=== PATIENT | female | born 1990 | race American Indian/Alaskan Native ===

== ENCOUNTER 2020-06-26 18:31 | Outpatient (CLI) | payer OTHER ==
[2020-06-26 19:39] VITALS: BP 110/69
--- NOTE | 2020-06-26 21:58 | Ultrasound Report ---
ULTRASOUND OBSTETRIC LIMITED ULTRASOUND BIOPHYSICAL PROFILE INDICATION / CLINICAL INFORMATION: MICHAEL. Clinical Gestational Age (GA): 38.3 weeks.days COMPARISON: None available. FINDINGS: BREATHING MOVEMENT = 2 GROSS BODY MOVEMENT = 2 TONE = 2 QUALITATIVE AMNIOTIC FLUID VOLUME = 2 TOTAL BIOPHYSICAL SCORE = 8/8 HEART RATE (beats per minute): 129 AMNIOTIC FLUID INDEX (cm) = 13.0 (normal = 7-24 cm) PRESENTATION: Cephalic. ADDITIONAL FINDINGS: None. IMPRESSION: 1. Biophysical Score = 8/8 2. MICHAEL is within normal limits at 13.0 cm. Signer Name: Armani Almanza MD Signed: 06/26/2020 9:53 PM Workstation Name: [id number]
== END 2020-06-26 21:20 | disposition home or self-care (01) ==
LOC: TRG 18:31 → APU 18:32 → TRG 21:20
PROVIDERS: ATTEND Obstetrics & Gynecology
DX: Z34.93 Encounter for supervision of normal pregnancy, unspecified, third trimester (principal); Z3A.38 38 weeks gestation of pregnancy
CPT/HCPCS: 59025; 76815; 76819

== ENCOUNTER 2020-06-28 03:52 | Inpatient (IN) | payer OTHER ==
[2020-06-28] MEDS ORDERED: LIDOCAINE (2%) 20 MG/1 ML VIAL 20 ML MDV INFILTRATI ONE (04:45)
[2020-06-28] MEDS ORDERED: ePHEDrine SULFATE 50 MG/1 ML INJ IV PRN ×2 (04:45→06:32)
[2020-06-28] MEDS ORDERED: LACTATED RINGERS 1,000 ML IV SCH (04:45)
[2020-06-28] MEDS ORDERED: fentaNYL 100 MCG/2 ML INJ IV PRN (04:45)
[2020-06-28] MEDS ORDERED: TERBUTALINE 1 MG/1 ML INJ SUB-Q PRN (04:45)
[2020-06-28] MEDS ORDERED: ONDANSETRON 4 MG/2 ML INJ IV PRN ×2 (04:45→10:30)
[2020-06-28] MEDS ORDERED: MINERAL OIL 30 ML ORAL LIQD PO PRN (04:45)
[2020-06-28] MEDS ORDERED: OXYTOCIN DRIP 30 UNITS/500 ML BAG IV SCH ×2 (05:00→08:00)
[2020-06-28 05:47] LABS: Hematocrit 32.6 % (30.3-42.9); Hemoglobin 11.2 gm/dl (10.1-14.3); Mean Corpuscular HGB Conc 35 % (30-34); Mean Corpuscular Volume 89 fl (79-97); Platelet Count 142 K/mm3 (140-440); Red Blood Count 3.68 M/mm3 (3.65-5.03)
[2020-06-28] MEDS ORDERED: NALOXONE 2 MG/2 ML INJ IV PRN (06:32)
--- NOTE | 2020-06-28 06:32 | Anesthesia Consultation ---
Anesthesia Consult and Med Hx Date of service: 06/28/20 - Airway Anesthetic Teeth Evaluation: Good ROM Head & Neck: Adequate Mental/Hyoid Distance: Adequate Mallampati Class: Class II Intubation Access Assessment: Probably Good - Pulmonary Exam CTA: Yes - Cardiac Exam Cardiac Exam: RRR - Pre-Operative Health Status ASA Pre-Surgery Classification: ASA3 Proposed Anesthetic Plan: Epidural - Endocrine Hx Hypothyroidism: Yes (as a child) - Other Systems Hx Alcohol Use: No Hx Obesity: Yes
--- NOTE | 2020-06-28 06:50 | Progress Note ---
Labor Epidural - Labor Epidural Start Time: 06:34 Stop Time: 06:45 Performed by:: NEERAJ TABARES Procedure: Patient is requesting epidural for labor pain. H&P, and labs reviewed. Procedure explained, questions answered, consent obtained. Patient in sitting position with blood pressure cuff and pulse ox on and working. Timeout performed immediately before start of procedure. Sterile chlorahexadine 0.5% prep/drape. 3 mL 1% lidocaine skin wheal at L[3]-L[4]. 18-gauge Tuohy epidural needle advanced to [id number] with saline at [7] cm. Epidural catheter advanced to [12] cm, negative aspiration for blood and csf, negative test dose 3 ml 1.5% lidocaine with epinephrine. Epidural dexmedetomidine [30] mcg administered. Sterile steri-strips and tegaderm applied, followed by tape reinforcement. Patient tolerated procedure well. Neeraj MACKENZIE
[2020-06-28] MEDS ORDERED: fentaNYL-BUPIV 2 MCG/ML-0.125% 200 MCG/100 ML BAG EPIDURAL SCH (07:00)
--- NOTE | 2020-06-28 07:01 | History and Physical Report ---
History of Present Illness Date of examination: 06/28/20 Date of admission: 06/28/20 04:45 Chief complaint: C/O uc since 2299 History of present illness: 29 y/o AA female presents to [facility] @ 38.5 wks with c/o uc since 2299. She denies LOF or VB, and admits to adq FM. Pt initiated her PNC at [facility] location @ 10 wks. She has a med hx of congenital heart murmur/ hypothyroidism /enlarged thyroid; more subclinical hyperthyroidism not c/w pt history, and chlamydia which was treated ( REINALDO neg). Heart murmur was evaluated as a child. GBS neg. Pt was co managed by [facility] r/t thyroid issues. She was found to be in labor and was admitted to L&D for delivery. Labs: AB pos AB screen neg Rubella -Immune VDRL- NR HBsAg- neg HIV- neg [id number] H&H 11.2/35.3 Varicella Immune Hgb EE- AA TSH/Free T4 0.040/1.55 1HR GTT 122 GBS neg Past History Past Medical History: other (congenital hypothyroidism/enlarged thyroid, heart murmur) Past Surgical History: no surgical history [employer] History: chlamydia Family/Genetic History: none Social history: no significant social history, full code - Obstetrical History Expected Date of Delivery: 07/07/20 Actual Gestation: 38 Week(s) 5 Day(s) : 2 Para: 1 Hx # Term Pregnancies: 1 Number of Pregnancies: 0 Number of Living Children: 1 Medications and Allergies Allergies Allergy/AdvReac Type Severity Reaction Status Date / Time No Known Allergies Allergy Verified 06/28/20 04:50 Active Meds: Active Medications Ephedrine Sulfate (Ephedrine Sulfate 50 Mg/1 Ml Inj) 10 mg IV Q2M PRN PRN Reason: Hypotension Fentanyl (Fentanyl 100 Mcg/2 Ml Inj) 100 mcg IV Q2H PRN PRN Reason: Pain,Severe (7-10) LABOR PAIN Lactated Ringer's (Lactated Ringers) 1,000 mls @ 125 mls/hr IV DIRECT MACKENZIE Oxytocin/Sodium Chloride (Pitocin/Ns 30 Unit/500ml) 30 units in 500 mls @ 40 mls/hr IV TITR MACKENZIE; Protocol Fentanyl/Bupivacaine/Sodium Chlor (Fentanyl-Bupiv 2 Mcg/Ml-0.125%) 200 mcg in 100 mls @ 12 mls/hr EPIDURAL TITR MACKENZIE; Protocol Mineral Oil (Mineral Oil 30 Ml Oral Liqd) 30 ml PO QHS PRN PRN Reason: Constipation Naloxone HCl (Naloxone 2 Mg/2 Ml Inj) 0.2 mg IV Q5M PRN PRN Reason: Respiratory sedation Ondansetron HCl (Ondansetron 4 Mg/2 Ml Inj) 4 mg IV Q8H PRN PRN Reason: Nausea And Vomiting Terbutaline Sulfate (Terbutaline 1 Mg/1 Ml Inj) 0.25 mg SUB-Q ONCE PRN PRN Reason: Hyperstimulation/Hypertonicity Review of Systems All systems: negative Eyes: deferred Ears, nose, mouth and throat: deferred Breasts: normal Genitourinary: normal appearance Rectal Exam: deferred - Vital Signs Vital signs: Vital Signs Pulse BP 98 H 111/65 06/28/20 04:17 06/28/20 04:17 Temp Pulse Resp BP Pulse Ox 98.4 F 95 H 18 109/67 100 06/28/20 04:31 06/28/20 06:40 06/28/20 04:31 06/28/20 05:49 06/28/20 06:40 - Physical Exam Breasts: Positive: normal Abdomen: Positive: normal appearance, soft, normal bowel sounds Genitourinary (Female): Positive: normal external genitalia, normal perenium Vulva: both: normal Vagina: Positive: normal moisture Uterus: Positive: enlarged, normal contour, other (gravid) Adnexa: both: normal Anus/Rectum: Positive: normal perianal skin Extremities: Positive: normal - Obstetrical FHR: auscultation normal, category 1 Uterine Contraction Monitor Mode: External Cervical Dilatation: 5 Cervical Effacement Percentage: 70 station: -2 Uterine Contraction Pattern: Irregular Uterine Tone Measurement Phase: Resting Uterine Contraction Intensity: Mild Results Result Diagrams: 06/28/20 05:11 Abnormal lab results 06/28/20 Range/Units 05:11 MCHC 35 H (30-34) % All other labs normal. Assessment and Plan A: IUP@ 38.5 wks Congential Hypothyroidism/ heart murmur GBS neg P: Admit to L&D Continuous monitoring Start Pitocin per protocal Pain med/Epidural prn Anticipate - Patient Problems (1) Supervision of normal IUP (intrauterine ) in multigravida Current Visit: Yes Status: Acute
[2020-06-28] MEDS ORDERED: LANOLIN/ZINC/DIMETHICONE (LANSINOH) 7 GM TP PRN (10:30)
[2020-06-28] MEDS ORDERED: WITCH HAZEL/ GLYCERIN PAD TP PRN (10:30)
[2020-06-28] MEDS ORDERED: diphenhydrAMINE 25 MG CAP PO PRN (10:30)
--- NOTE | 2020-06-28 10:30 | Procedure Note ---
OB Delivery Note - Delivery Date of Delivery: 06/28/20 Conformal Pad Former: EDELMIRA MART (Cat JAMESON) Estimated blood loss: 200cc - Vaginal Delivery presentation: vertex Delivery position: OA Intrapartum events: none Delivery induction: none Delivery augmentation: rupture of membranes Delivery monitor: external FHT, external uterine Route of delivery: Delivery placenta: spontaneous Delivery cord: 3 umbilical vessels Episiotomy: none Delivery laceration: 1st degree Delivery repair: vicryl Anesthesia: epidural Delivery comments: Viable female infant delivered. Shoulders delivered spontaneously Infant to mothers abdomen. Cord clamped and cut after cessation of pulsation. Placenta delivered spontaneously, 3VC and intact. FF@U-1 with fundal massage and IV pitocin. Exploration of tears revealed a 1st degree vaginal and periurethral which was repaired with a 3-[address]-1. Mom and baby stable. Sponges and instruments counted and correct and verified with RN. EBL [address] CNM/ Cat Ryan SNM. - Infant A at 1 minute: 8 at 5 minutes: 9 Infant Gender: Female (7 lbs 13 oz)
[2020-06-28] MEDS ORDERED: PROMETHAZINE 25 MG RECT SUPP PR PRN (11:00)
[2020-06-28] MEDS ORDERED: IBUPROFEN 600 MG TAB PO SCH (11:00)
[2020-06-28] MEDS ORDERED: PROMETHAZINE 25 MG TAB PO PRN (11:00)
[2020-06-28] MEDS: IBUPROFEN 800 MG TAB PO SCH ×3 (12:50→23:56)
[2020-06-28 21:42] LABS: Hematocrit 27.5 % (30.3-42.9); Hemoglobin 9.4 gm/dl (10.1-14.3)
[2020-06-28] MEDS ORDERED: MAGNESIUM HYDROXIDE (MOM) ORAL LIQD UDC PO PRN (22:00)
[2020-06-29] MEDS: IBUPROFEN 800 MG TAB PO SCH ×2 (05:44→12:25)
--- NOTE | 2020-06-29 05:55 | Progress Note ---
Assessment and Plan A: PP Day #1 Asymptomatic Anemia P: Follow Routine Orders Ferrous [id number] PO BID D/C home today per patient request RTO in 6 Weeks Subjective - Subjective Date of service: 06/29/20 Patient reports: appetite normal, voiding normally, pain well controlled, flatus, ambulating normally : doing well, bottle feeding (and ) Objective - Vital Signs Latest vital signs: Vital Signs Temp Pulse Resp BP BP Pulse Ox 06/29/20 05:44 18 06/29/20 00:00 98.6 F 70 18 113/68 06/28/20 23:56 18 06/28/20 19:30 98.6 F 74 16 102/76 06/28/20 17:00 98.7 F 101 H 18 95/64 98 06/28/20 12:42 98.5 F 82 19 105/62 98 06/28/20 10:47 86 107/70 06/28/20 10:37 85 110/62 06/28/20 10:27 93 H 104/52 06/28/20 10:17 92 H 92/55 06/28/20 10:06 90 93/58 06/28/20 09:56 73 93/55 06/28/20 09:46 70 96/51 06/28/20 09:37 87 94/52 06/28/20 09:17 83 109/59 06/28/20 09:15 75 112/58 06/28/20 09:12 76 97/60 06/28/20 09:08 87 113/70 06/28/20 09:05 93 H 103/65 06/28/20 09:02 90 95/61 06/28/20 08:59 90 107/58 06/28/20 08:56 83 108/63 06/28/20 08:54 88 119/62 06/28/20 08:50 75 91/53 06/28/20 08:47 80 89/50 06/28/20 08:44 72 93/53 06/28/20 08:41 76 104/63 06/28/20 08:38 95 H 91/57 06/28/20 08:35 81 88/61 06/28/20 08:33 79 100/65 06/28/20 08:29 76 87/53 06/28/20 08:26 82 88/51 06/28/20 08:23 72 95/55 05 08:20 85 102/63 05 08:17 87 88/56 05 08:14 81 87/52 05 08:11 74 97/59 05 08:08 76 92/57 06/28/20 08:05 83 90/54 05 08:02 78 92/54 05 07:59 74 99/60 05 07:56 83 95/55 05 07:53 81 89/53 05 07:50 75 93/55 05 07:47 78 101/60 05 07:44 88 98/58 06/28/20 07:41 83 101/61 06/28/20 07:38 74 96/58 06/28/20 07:35 85 92/55 99 06/28/20 07:32 80 89/54 06/28/20 07:30 72 99 06/28/20 07:29 71 95/57 05 07:26 73 101/61 06/28/20 07:25 80 99 05 07:23 78 91/57 05 07:20 71 96/60 99 06/28/20 07:17 80 92/59 05 07:15 98.2 F 79 99 06/28/20 07:14 79 95/63 05 07:11 94 H 95/62 06/28/20 07:10 80 99 06/28/20 07:08 80 98/61 05 07:05 88 90/57 99 06/28/20 07:02 80 102/67 06/28/20 07:00 79 100 05 06:59 76 101/62 05 06:56 93 H 99/62 06/28/20 06:55 88 100 06/28/20 06:53 104 H 105/64 06/28/20 06:50 93 H 114/70 100 05 06:47 123/74 05 06:45 99 H 100 05 06:44 94 H 111/73 05 06:40 95 H 100 05 06:35 96 H 100 06/28/20 06:26 84 100 06/28/20 06:21 95 H 100 06/28/20 06:16 94 H 100 06/28/20 06:11 100 H 100 06/28/20 06:05 98 H 100 06/28/20 06:00 87 100 06/28/20 05:55 96 H 100 Intake and Output 06/28/20 06/28/20 06/29/20 14:59 22:59 06:59 Intake Total 400 660 300 Output Total 300 100 Balance 100 560 300 Intake: Oral 300 120 Intake, Free Water 100 540 300 Output: Urine 300 100 Void 300 100 Other: Total, Intake Amount 300 120 Total, Output Amount 300 100 # Voids Void 1 1 1 Estimated Blood Loss 200 - Exam Breasts: Present: normal Cardiovascular: Present: Regular rate Lungs: Present: Clear to auscultation, Normal air movement Abdomen: Present: normal appearance, soft, normal bowel sounds Uterus: Present: normal, firm, fundal height below umbilicus Extremities: Present: normal - Labs Labs: Abnormal lab results 06/28/20 Range/Units 21:28 Hgb 9.4 L (10.1-14.3) gm/dl Hct 27.5 L (30.3-42.9) %
--- NOTE | 2020-06-29 05:57 | Discharge Summary ---
Providers - Providers Date of Admission: 06/28/20 04:45 Date of discharge: 06/29/20 Attending physician: ALICIA YUN JR, MD Primary care physician: ALICIA YUN JR, MD Hospitalization Reason for admission: active labor Delivery: Episiotomy: none Laceration: 1st degree Other procedures: none complications: none Discharge diagnosis: IUP at term delivered Lawson baby: female Condition at discharge: Good Disposition: DC-01 TO HOME OR SELFCARE Plan - Provider Discharge Summary Activity: routine, no sex for 6 weeks, no heavy lifting 4 weeks, no strenuous exercise Diet: routine Instructions: routine Additional instructions: [] Smoking cessation referral if applicable(refer to patient education folder for contact #) [] Refer to [facility] Booklet Call your doctor immediately for: * Fever > 100.5 * Heavy vaginal bleeding ( >1 pad per hour) * Severe persistent headache * Shortness of breath * Reddened, hot, painful area to leg or breast * Drainage or odor from incision. * Keep incision clean and dry at all times and follow doctor's instructions regarding bathing/showering - Follow up plan Follow up: ALICIA YUN JR, MD [Primary Care Provider] - 6 Weeks
[2020-06-29] MEDS ORDERED: FERROUS SULFATE 325 MG TAB PO SCH (10:00)
--- NOTE | 2020-06-29 12:53 | Post Anesthesia Evaluation ---
- Post Anesthesia Evaluation Patient Participated: Yes Airway Patent: Yes Stable Respiratory Function: Yes Nausea/Vomiting: No Temp > 96.8F: Yes Pain Manageable: Yes Adequeate Hydration: Yes Anesthesia Complications: No Block Receding Appropriately: Yes Patient on Ventilator: No
[2020-06-29 17:01] VITALS: BP 132/66
== END 2020-06-29 18:15 | disposition home or self-care (01) | DRG 775 ==
LOC: TRG 03:52 → APU 03:59 → LD 04:45 → TRG 04:45 → OB 12:36
PROVIDERS: ADMIT Obstetrics & Gynecology; ATTEND Obstetrics & Gynecology
PROC: 10E0XZZ Delivery of Products of Conception, External Approach (ICD-10-PCS; principal; 2020-06-28)
PROC: 0HQ9XZZ Repair Perineum Skin, External Approach (ICD-10-PCS; 2020-06-28)
PROC: 3E0R3BZ Introduction of Anesthetic Agent into Spinal Canal, Percutaneous Approach (ICD-10-PCS; 2020-06-28)
PROC: 00HU33Z Insertion of Infusion Device into Spinal Canal, Percutaneous Approach (ICD-10-PCS; 2020-06-28)
DX: O99.284 Endocrine, nutritional and metabolic diseases complicating childbirth (principal); E03.9 Hypothyroidism, unspecified; Z20.822 Contact with and (suspected) exposure to COVID-19; O70.0 First degree perineal laceration during delivery; O99.02 Anemia complicating childbirth; Z3A.38 38 weeks gestation of pregnancy; Z37.0 Single live birth
CPT/HCPCS: 36415; 59025; 76815; 76819; 85014; 85018; 85027; 86592; 86850; 86900; 86901; G0378; J2590; U0003